=== PATIENT | female | born 1975 | race Two or more races ===

== ENCOUNTER 2017-07-08 09:51 | Emergency (ER) | payer OTHER ==
[~2017-07-08] VITALS: Ht 152.4 cm; Wt 63.5 kg
[2017-07-08 12:15] VITALS: BP 123/77
[2017-07-08] MEDS ORDERED: ALPRAZolam 0.5 MG TABLET PO ONE (12:15)
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
== END 2017-07-08 12:20 | disposition home or self-care (01) ==
LOC: ER 09:51
DX: F41.9 Anxiety disorder, unspecified (principal); F32.9 Major depressive disorder, single episode, unspecified; G43.909 Migraine, unspecified, not intractable, without status migrainosus
CPT/HCPCS: 99284